=== PATIENT | female | born 1960 | race Caucasian/White ===

== ENCOUNTER 2022-05-25 13:51 | Outpatient (CLI) | payer MEDICARE, MEDICAID, SELFPAY ==
--- NOTE | ~2022-05-25 | CT_ITS ---
Corrected Report See Bolded Text 10/06/2022 [facility] This report was recreated on 10/06/2022. Original report was signed by Marino Hunt M.D. on 05/25/2022 15:33 [facility]. EXAMINATION: CT UE RT wo con DATE: 05/25/2022 14:26 INDICATION: Closed fracture of the upper shaft of the right humerus TECHNIQUE: High resolution computed tomography (CT) of the right humerus and shoulder was performed without intravenous contrast. Additional sagittal and coronal reconstructions were performed. Automated exposure control and iterative reconstruction technique were employed. The dose-length product was 784.36 mGy- cm. COMPARISON: None FINDINGS: Chronic comminuted fracture involving the right humeral head and neck and extending distally to the mid diaphysis. There is solid osseous fusion of the fragments at the head and neck which is healed with some impaction along a surgical neck fracture plane. There is also solid osseous fusion along a minimally displaced longitudinally oriented fracture plane involving the proximal diaphysis. The oblique fracture plane at the mid diaphysis remains ununited with some nonbridging callus formation. There is approximately one shaft width posterior displacement and and 2.5 cm proximally duration with overriding. There is also approximately 15 degrees anterior and 25-30 degrees medial angulation. Finally there appears to be a greater degree of internal rotation at the level of the elbow relative to the humeral head. A few old healed anterolateral right rib fractures. No other acute fractures identified. The humeral head remains normally centered over the glenoid with mild humeral osteoarthritis. No joint effusion. Moderate acromioclavicular osteoarthritis. Indeterminate 5-6 mm right upper lobe nodule. A few right axillary lymph nodes which are comprised almost entirely of large central fatty elizabeth. No pathologically enlarged right axillary lymphadenopathy. IMPRESSION: 1. Chronic comminuted fracture of the right humeral head neck and proximal diaphysis, the former healed and with residual ununited oblique fracture plane the mid diaphysis with significant residual displacement, angulation as well as small amount of rotational displacement. 2. Indeterminate 5-6 mm right upper lobe pulmonary nodule. If the patient is low risk for lung cancer, no follow-up is needed. If the patient is high risk (i.e., history of smoking or asbestos or significant radiation exposure), optional follow-up chest CT could be considered at 12 months. Reviewed, dictated and finalized at location A. [facility] IMPRESSION: 1. Chronic comminuted fracture of the right femoral head neck and proximal diap hysis, the former healed and with residual ununited oblique fracture plane the mid diaphysis with significant residual displacement, angulation as well as sma ll amount of rotational displacement. 2. Indeterminate 5-6 mm right upper lobe pulmonary nodule. If the patient is lo w risk for lung cancer, no follow-up is needed. If the patient is high risk (i. e., history of smoking or asbestos or significant radiation exposure), optional follow-up chest CT could be considered at 12 months.
== END 2022-05-25 13:52 ==
PROVIDERS: PCP Physician Assistant
DX: S42.201A Unspecified fracture of upper end of right humerus, initial encounter for closed fracture (principal); S42.301A Unspecified fracture of shaft of humerus, right arm, initial encounter for closed fracture; R91.8 Other nonspecific abnormal finding of lung field
CPT/HCPCS: 73200